=== PATIENT | male | born 1940 | race Caucasian/White ===

== ENCOUNTER → 2016-09-11 | Outpatient (CLI) | payer BC ==
[~2016-09-11] MED LIST: ASPEC81 PO; DILT-119 PO; FINA5TAB PO; HYDR2.5C37 TOP; HYDR25SU20 PR; PRLSR20 PO; SULF-183 PO; TRIA37.5 PO
== END | disposition home or self-care (01) ==
LOC: C.LABPVFM 10:52
PROVIDERS: ATTEND Urology
DX: N40.1 Benign prostatic hyperplasia with lower urinary tract symptoms (principal)

== ENCOUNTER → 2017-03-07 | Outpatient (CLI) | payer BC ==
[2017-03-07 13:10] LABS: ALT/SGPT 21 U/L (12-78); AST/SGOT 17 U/L (15-37); BLOOD UREA NITROGEN 20 mg/dl (7-18); BUN/CREATININE RATIO 16.7 (10-20); CALCIUM 8.7 mg/dl (8.5-10.1); CARBON DIOXIDE 31 mmol/L (21-32); CHLORIDE 106 mmol/L (98-107); GLUCOSE 93 mg/dl (70-99); POTASSIUM 3.5 mmol/L (3.5-5.1); SODIUM 144 mmol/L (136-145)
[2017-03-07 13:12] LABS: ALB/GLOB RATIO 0.9 (0.9-2); ALKALINE PHOSPHATASE 89 U/L (45-117); CHOLESTEROL 152 mg/dl (0-200); HDL CHOLESTEROL 50 mg/dl; LDL CHOLESTEROL CALCULATED 71 mg/dl; TRIGLYCERIDES 156 mg/dl (0-150); VERY LOW DENSITY LIPOPROT CALC 31 mg/dl
[2017-03-07 13:48] LABS: ESTIMATED AVERAGE GLUCOSE 100 mg/dl; HA1C FLAG Normal (Normal)
== END | disposition home or self-care (01) ==
LOC: C.LABPVFM 09:58
PROVIDERS: ATTEND Internal Medicine Cardiovascular Disease
DX: R73.9 Hyperglycemia, unspecified (principal)

== ENCOUNTER → 2017-08-21 | Outpatient (CLI) | payer BC | END | disposition home or self-care (01) | LOC: C.LABPVFM 10:01 | PROVIDERS: ATTEND Urology | DX: N40.1 Benign prostatic hyperplasia with lower urinary tract symptoms (principal) ==

== ENCOUNTER → 2017-08-30 | Outpatient (CLI) | payer BC | END | disposition home or self-care (01) | LOC: C.LABSPEC 15:10 | PROVIDERS: ATTEND Urology | DX: N40.1 Benign prostatic hyperplasia with lower urinary tract symptoms (principal); R82.71 Bacteriuria ==

== ENCOUNTER 2017-12-22 14:00 | Emergency (ER) | payer BC ==
[2017-12-22 14:11] VITALS: TEMP 36.7; Ht 180.3 cm
[2017-12-22] MEDS ORDERED: HYDROCODONE/ACETAMIN 5/325MG TAB PO STA (14:40)
--- NOTE | 2017-12-22 14:58 | DIAGNOSTIC IMAGING REPORT ---
L FOOT MIN 3 VIEWS ROUTINE CLINICAL HISTORY: L foot pain, swelling pain. Edema. COMPARISON: None. DISCUSSION: General mild generative change throughout. Small heel spur. Generalized soft tissue edematous change. No lytic or blastic process. IMPRESSION: Generalized mild degenerative change. Soft tissue edema. No acute bony abnormality. The above report was generated using voice recognition software. It may contain grammatical, syntax or spelling errors. Electronically signed by: Han Moore M.D. 12/22/2017 2:57 PM Dictated Date/Time: 12/22/2017 2:56 PM
--- NOTE | 2017-12-22 15:01 | DIAGNOSTIC IMAGING REPORT ---
L ANKLE MIN 3 VIEWS ROUTINE CLINICAL HISTORY: L ankle swelling pain COMPARISON: None. DISCUSSION: Calcific fragment adjacent to the medial talus. This is well-corticated is considered nonacute. Small heel spur. Mild generalized soft tissue edematous change. Soft tissue vascular calcification. IMPRESSION: Chronic change. No acute process. The above report was generated using voice recognition software. It may contain grammatical, syntax or spelling errors. Electronically signed by: Han Moore M.D. 12/22/2017 2:59 PM Dictated Date/Time: 12/22/2017 2:57 PM
--- NOTE | 2017-12-22 15:06 | EMERGENCY ROOM VISIT NOTE ---
History Report prepared by Skyler: Ailyn Russo Under the Supervision of: Dr. Marta Pierre M.D. First contact with patient: 14:32 Chief Complaint: FOOT PAIN Stated Complaint: CANNOT STAND- PAIN LOWER LEGS History of Present Illness The patient is a 77 year old male who presents to the Emergency Room with complaints of worsening foot pain that started yesterday. The patient states that he awoke with the foot pain yesterday and increased in pain throughout the day. He states that it started swelling when he work up this morning. The patient notes that his left foot hurts on the outside of his ankle and that the pain radiates into the middle of his ankle. He states that he can't put weight on his foot. The patient denies injury to the foot. The patient denies a history of diabetes, blood clots, gout, and smoking. Source of History: patient Onset: Yesterday Position: foot (left) Quality: other (swelling) Timing: worsening Modifying Factors (Worsening): other (weight bearing) Review of Systems See HPI for pertinent positives & negatives. A total of 10 systems reviewed and were otherwise negative. Past Medical & Surgical Medical Problems: (1) Esophageal Reflux (2) Incarcerated incisional hernia (3) Incisional Hernia (4) Umbilical Hernia (5) Wound infection after surgery Surgical Problems: (1) S/P hernia repair Family History Patient reports no known family medical history. Social History Smoking Status: Never Smoker Alcohol Use: none Drug Use: none Marital Status: Housing Status: lives with family Occupation Status: retired Current/Historical Medications Scheduled Aspirin Enteric Coated (Ecotrin Or Generic), 81 MG PO DAILY Diltiazem Hcl Ext Rel (Tiazac), 360 MG PO QAM Finasteride (Proscar), 5 MG PO DAILY Omeprazole (Prilosec), 20 MG PO DAILY Triamterene/Hctz (Dyazide 37.5MG/25MG), 1 TAB PO QAM Scheduled PRN Hydrocodone/Acetaminophen 5MG/325MG ([place] 5MG/325MG), 1 TABLET PO q4-6 PRN for Pain Allergies Coded Allergies: No Known Allergies (Verified , `, 12/22/17) Physical Exam Vital Signs Date Time Temp Pulse Resp B/P (MAP) Pulse Ox O2 Delivery O2 Flow Rate FiO2 12/22/17 17:21 81 16 142/81 98 12/22/17 14:11 36.7 91 16 124/77 95 Room Air Physical Exam Vital signs reviewed. General: Well-appearing, elderly, in no significant distress. HEENT: No scleral icterus, PERRLA, neck supple. Atraumatic. Cardiovascular: Regular rate and rhythm, no extra sounds. Pulmonary: Clear to auscultation bilaterally, normal work of breathing. Abdomen: Soft, nontender, nondistended, positive bowel sounds. Obese abdomen. Musculoskeletal: Atraumatic. Arthritic changes to the bilateral lower extremities. 1+ pitting edema to the left lower extremities. Tenderness along the medial malleolus and lateral malleolus. Neurologic: Patient awake alert and oriented x 3 Skin: Warm, dry, no rash. No appreciable erythema. Fungal changes to the toenails. Absent toenail to the right great toe with some post traumatic dry blood at the bed. Medical Decision & Procedures ER Provider Diagnostic Interpretation: Radiology results as stated below per my review and radiologist interpretation: L VENOUS DOPP LOWER EXT UNILAT CLINICAL HISTORY: LLE swelling pain. Edema. TECHNIQUE: Venous Doppler left leg COMPARISON STUDY: None FINDINGS: Normal venous Doppler left leg IMPRESSION: Normal study The above report was generated using voice recognition software. It may contain grammatical, syntax or spelling errors. Electronically signed by: Han Moore M.D. 12/22/2017 4:38 PM Dictated Date/Time: 12/22/2017 4:38 PM L FOOT MIN 3 VIEWS ROUTINE CLINICAL HISTORY: L foot pain, swelling pain. Edema. COMPARISON: None. DISCUSSION: General mild generative change throughout. Small heel spur. Generalized soft tissue edematous change. No lytic or blastic process. IMPRESSION: Generalized mild degenerative change. Soft tissue edema. No acute bony abnormality. The above report was generated using voice recognition software. It may contain grammatical, syntax or spelling errors. Electronically signed by: Han Moore M.D. 12/22/2017 2:57 PM Dictated Date/Time: 12/22/2017 2:56 PM L ANKLE MIN 3 VIEWS ROUTINE CLINICAL HISTORY: L ankle swelling pain COMPARISON: None. DISCUSSION: Calcific fragment adjacent to the medial talus. This is well-corticated is considered nonacute. Small heel spur. Mild generalized soft tissue edematous change. Soft tissue vascular calcification. IMPRESSION: Chronic change. No acute process. The above report was generated using voice recognition software. It may contain grammatical, syntax or spelling errors. Electronically signed by: Han Moore M.D. 12/22/2017 2:59 PM Laboratory Results 12/22/17 14:55 Red Blood Count 5.01, Mean Corpuscular Volume 89.4, Mean Corpuscular Hemoglobin 31.3, Mean Corpuscular Hemoglobin Concent 35.0, Mean Platelet Volume 9.3, Neutrophils (%) (Auto) 72.9, Lymphocytes (%) (Auto) 14.8, Monocytes (%) (Auto) 10.2, Eosinophils (%) (Auto) 1.5, Basophils (%) (Auto) 0.3, Neutrophils # (Auto ) 8.68, Lymphocytes # (Auto) 1.77, Monocytes # (Auto) 1.22, Eosinophils # (Auto ) 0.18, Basophils # (Auto) 0.04 12/22/17 14:55 Test 12/22/17 14:55 12/22/17 15:11 White Blood Count 11.93 K/uL (4.8-10.8) Red Blood Count 5.01 M/uL (4.7-6.1) Hemoglobin 15.7 g/dL (14.0-18.0) Hematocrit 44.8 % (42-52) Mean Corpuscular Volume 89.4 fL (80-100) Mean Corpuscular Hemoglobin 31.3 pg (25-34) Mean Corpuscular Hemoglobin Concent 35.0 g/dl (32-36) Platelet Count 195 K/uL (130-400) Mean Platelet Volume 9.3 fL (7.4-10.4) Neutrophils (%) (Auto) 72.9 % Lymphocytes (%) (Auto) 14.8 % Monocytes (%) (Auto) 10.2 % Eosinophils (%) (Auto) 1.5 % Basophils (%) (Auto) 0.3 % Neutrophils # (Auto) 8.68 K/uL (1.4-6.5) Lymphocytes # (Auto) 1.77 K/uL (1.2-3.4) Monocytes # (Auto) 1.22 K/uL (0.11-0.59) Eosinophils # (Auto) 0.18 K/uL (0-0.5) Basophils # (Auto) 0.04 K/uL (0-0.2) RDW Standard Deviation 45.2 fL (36.4-46.3) RDW Coefficient of Variation 13.7 % (11.5-14.5) Immature Granulocyte % (Auto) 0.3 % Immature Granulocyte # (Auto) 0.04 K/uL (0.00-0.02) Erythrocyte Sedimentation Rate 13 mm/hr (0-14) Anion Gap 6.0 mmol/L (3-11) Estimated GFR () 67.4 Estimated GFR (Non- 58.2 BUN/Creatinine Ratio 18.8 (10-20) Uric Acid 9.1 mg/dl (2.6-7.2) Calcium Level 8.5 mg/dl (8.5-10.1) Total Bilirubin 0.7 mg/dl (0.2-1) Direct Bilirubin 0.2 mg/dl (0-0.2) Aspartate Amino Transf (AST/SGOT) 18 U/L (15-37) Alanine Aminotransferase (ALT/SGPT) 20 U/L (12-78) Alkaline Phosphatase 78 U/L (45-117) C-Reactive Protein 1.66 mg/dl (0-0.29) Total Protein 7.0 gm/dl (6.4-8.2) Albumin 3.4 gm/dl (3.4-5.0) Prothrombin Time 11.1 SECONDS (9.0-12.0) Prothromb Time International Ratio 1.1 (0.9-1.1) Activated Partial Thromboplast Time 27.9 SECONDS (21.0-31.0) Partial Thromboplastin Ratio 1.1 Laboratory results per my review. ED Course 1437: Past medical records reviewed. The patient was evaluated in room D7. A complete history and physical examination was performed. 1650: Upon reevaluation, the patient appeared to have improvement of his symptoms. I discussed findings with him. He verbalized agreement of the treatment plan. The patient was discharged home. Medical Decision Differential diagnosis: Etiologies such as cellulitis, abscess, MRSA infection, DVT, necrotizing fasciitis, dermatitis, drug eruption, gout, osteomyelitis, fracture, as well as others were entertained. This patient was evaluated and appeared to be in some discomfort. Physical examination reveals some swelling of the left foot but no acute process is identified. X-rays of the foot and ankle were performed and reveal degenerative changes. Ultrasound reveals no evidence of DVT. Laboratory work reveals a normal white count, sedimentation rate. CRP and uric acid levels are mildly elevated. Patient was placed in a walking boot. The symptoms are not localized to one joint. He may have some gout developing however I feel this is likely more of a degenerative process. Patient was given a prescription for [place] to be used as needed for pain. He was advised not to drive or to take Tylenol with this medication. He will use ibuprofen as needed for pain otherwise. He will follow-up with his PCP this week for reevaluation. He will return to the ED for worsening of symptoms or any medical concerns. Medication Reconcilliation Current Medication List: was personally reviewed by me Blood Pressure Screening Patient's blood pressure: Normal blood pressure Blood pressure disposition: Did not require urgent referral Impression Primary Impression: Degenerative joint disease of left foot Additional Impression: Pronation of left foot Scribe Attestation The scribe's documentation has been prepared under my direction and personally reviewed by me in its entirety. I confirm that the note above accurately reflects all work, treatment, procedures, and medical decision making performed by me. Departure Information Dispostion Home / Self-Care Prescriptions Hydrocodone/Acetaminophen 5MG/325MG ([place] 5MG/325MG) Tab 1 TABLET PO q4-6 Y for Pain, #20 TAB Prov: Marta Pierre M.D. 12/22/17 Referrals No Doctor, Assigned (PCP) Forms HOME CARE DOCUMENTATION FORM, IMPORTANT VISIT INFORMATION Patient Instructions My [facility] Additional Instructions Diagnosis: Left foot degenerative changes, pronation of the left foot Hydrocodone/APAP 5/325, 1 tablet every 4-6 hours as needed for severe pain. Do not drive, operate heavy machinery or take Tylenol with this medication. Ibuprofen 600 mg every 6 hours as needed for pain with food. Wear the walking boot for support. Follow-up with your primary care physician and consider orthopedic referral for further management. Return to the ED for worsening of symptoms or any medical concerns. Problem Qualifiers
[2017-12-22 15:07] LABS: BASO % 0.3 %; BASO ABS # 0.04 K/uL (0-0.2); EOS % 1.5 %; EOS ABS # 0.18 K/uL (0-0.5); HEMATOCRIT 44.8 % (42-52); HEMOGLOBIN 15.7 g/dL (14.0-18.0); IG# 0.04 K/uL (0.00-0.02); LYMPH % 14.8 %; LYMPH ABS # 1.77 K/uL (1.2-3.4); MEAN CELL VOLUME 89.4 fL (80-100); MEAN CORPUSCULAR HEMOGLOBIN 31.3 pg (25-34); MEAN PLATELET VOLUME 9.3 fL (7.4-10.4); MONO % 10.2 %; MONO ABS # 1.22 K/uL (0.11-0.59); NEUT % 72.9 %; NEUT ABS # 8.68 K/uL (1.4-6.5); PLATELET COUNT 195 K/uL (130-400); RED CELL DISTRIBUTION WIDTH CV 13.7 % (11.5-14.5); RED CELL DISTRIBUTION WIDTH SD 45.2 fL (36.4-46.3); WHITE BLOOD COUNT 11.93 K/uL (4.8-10.8)
[2017-12-22] MEDS ORDERED: ASPI-319 PO (15:10)
[2017-12-22 15:40] LABS: INR 1.1 (0.9-1.1); PTT PATIENT 27.9 SECONDS (21.0-31.0)
[2017-12-22 15:42] LABS: ALBUMIN 3.4 gm/dl (3.4-5.0); ALKALINE PHOSPHATASE 78 U/L (45-117); ALT/SGPT 20 U/L (12-78); AST/SGOT 18 U/L (15-37); BLOOD UREA NITROGEN 22 mg/dl (7-18); CALCIUM 8.5 mg/dl (8.5-10.1); CARBON DIOXIDE 31 mmol/L (21-32); CREATININE 1.19 mg/dl (0.60-1.40); GLUCOSE 90 mg/dl (70-99); POTASSIUM 3.1 mmol/L (3.5-5.1); SODIUM 141 mmol/L (136-145); URIC ACID 9.1 mg/dl (2.6-7.2)
--- NOTE | 2017-12-22 16:39 | DIAGNOSTIC IMAGING REPORT ---
L VENOUS DOPP LOWER EXT UNILAT CLINICAL HISTORY: LLE swelling pain. Edema. TECHNIQUE: Venous Doppler left leg COMPARISON STUDY: None FINDINGS: Normal venous Doppler left leg IMPRESSION: Normal study The above report was generated using voice recognition software. It may contain grammatical, syntax or spelling errors. Electronically signed by: Han Moore M.D. 12/22/2017 4:38 PM Dictated Date/Time: 12/22/2017 4:38 PM
[2017-12-22] MEDS ORDERED: HYDR-5688 PO (16:56)
[2017-12-22 17:21] VITALS: BP 142/81; PULSE 81; O2SAT 98
== END 2017-12-22 17:22 | disposition home or self-care (01) ==
LOC: C.EDB 14:02 → C.EDD 17:22
DX: M19.072 Primary osteoarthritis, left ankle and foot (principal); M21.6X2 Other acquired deformities of left foot; Z79.82 Long term (current) use of aspirin; Z79.899 Other long term (current) drug therapy

== ENCOUNTER 2021-06-16 15:03 | Inpatient (IN) ==
[2021-06-16] MEDS ORDERED: ALBUT/IPRATROP 3MG/0.5MG NEB 3 ML VIAL NEB STA (15:14)
--- NOTE | 2021-06-16 15:33 | XRay Report ---
SINGLE VIEW CHEST CLINICAL HISTORY: Dyspnea and wheezing. Hypoxia. FINDINGS: An AP, portable, upright chest radiograph is compared to study dated 06/24/2020. The examina tion is degraded by portable technique, large body habitus, and apical lordotic positioning. The hear t is enlarged noting atherosclerotic calcification of the thoracic aorta. The pulmonary vasculature i s noncongested. A large hiatal hernia is noted. Left basilar opacities likely represent atelectasis. No airspace consolidation or large pleural effusion is identified. No pneumothorax is seen. The skele gisella structures are osteopenic. There are healed right-sided rib fractures. IMPRESSION: 1. Left basilar opacities likely represent atelectasis. Clinical correlation will be required. 2. Cardiomegaly without radiographic evidence of congestive failure. 3. Large hiatal hernia. ACT 112: Negative or not required by law. Electronically signed by: Derrek Ramsye M.D. 06/16/2021 3:32 PM
[2021-06-16 15:38] LABS: Basophils # (auto) 0.01 K/uL (0-0.2); Basophils % (auto) 0.3 %; Hematocrit (blood only) 46.4 % (42-52); Immature Granulocytes # (auto) 0.02 K/uL (0.00-0.02); Immature Granulocytes % (auto) 0.5 %; Lymphocytes # (auto) 0.81 K/uL (1.2-3.4); Lymphocytes % (auto) 21.4 %; Mean Corpuscular Hemoglobin 31.5 pg (25-34); Mean Corpuscular Hgb Conc 34.5 g/dL (32-36); Mean Corpuscular Volume 91.3 fL (80-100); Mean Platelet Volume 10.1 fL (7.4-10.4); Monocytes # (auto) 0.53 K/uL (0.11-0.59); Neutrophils # (auto) 2.42 K/uL (1.4-6.5); Neutrophils % (auto) 63.8 %; Platelet Count 120 K/uL (130-400); RDW Coefficient of Variation 13.7 % (11.5-14.5); RDW Standard Deviation 46.2 fL (36.4-46.3); Red Blood Count 5.08 M/uL (4.7-6.1); White Blood Count 3.79 K/uL (4.8-10.8)
[2021-06-16] MEDS ORDERED: ACETAMINOPHEN 500 MG TAB PO STA (15:38)
--- NOTE | 2021-06-16 15:38 | Emergency Department Note ---
Impression & Plan Hypoxia, Breathlessness, 2019 novel coronavirus-infected pneumonia (NCIP), Elevated troponin I level ED Provider Note Provider: Srinath Gay MD DATE OF SERVICE: 06/16/2021 CHIEF COMPLAINT: Shortness of breath HISTORY OF PRESENT ILLNESS: Patient is a 80-year-old gentleman history of GERD and hypertension presenting via ambulance referred from the outpatient clinic. Patient came in for some shortness of breath there. There are notes. Was found to be hypoxic. Sent here for further evaluation. Patient states he been short of breath and having some on and off fevers for the past 3 to 4 days. Denies any abdominal pain or nausea or vomiting. Denies any head pain or chest pain. Patient states feels like he just cannot catch his breath at times. Denies a history of smoking. Denies sick contacts or travel. States he is little bit of chronic swelling in his legs but this is not changed. Patient is not vaccinated for COVID. REVIEW OF SYSTEMS: A total of 10 review of systems was obtained and negative except as stated above in the HPI. PAST MEDICAL HISTORY: As noted above MEDICATIONS: Reviewed home medication list SOCIAL HISTORY: Lives at home with , non-smoker per his report PHYSICAL EXAM: GENERAL: alert and oriented in no acute distress on stretcher Head: normocephalic and atraumatic EYES: No injection, discharge or icterus. PERRL NECK: Trachea midline. Supple. ENT: Mucous membranes pink and moist. LUNGS: Airway patent. No retractions but somewhat tachypneic. Some diffuse wheeze appreciated. HEART: Regular rate and rhythm. No chest wall tenderness ABDOMEN: Soft and non-tender, without guarding or rebound. SKIN: Acyanotic, warm, dry EXTREMITIES: Patient with some mild bilateral chronic stasis changes and 1+ mild bilateral edema. NEUROLOGICAL: No focal deficits. No aphasia. No facial droop or slurred speech. EK bpm normal sinus rhythm without PVC or PAC. Some slight baseline artifact noted. No acute ST segment elevation noted with left axis. Nonspecific T wave changes. QTc 409. CONTINUOUS CARDIAC MONITORING: was ordered and showed a heart rate of 70s-90s bpm in normal sinus rhythm Patient's laboratory studies and imaging reviewed. Differential includes Reactive airway disease, pneumonia, pneumothorax, COPD, CHF, infections, cardiac ischemia, pulmonary embolism, musculoskeletal, gastrointestinal, as well as other pathologies. IMPRESSION/MEDICAL DECISION MAKING: Patient nonvaccinated with some increased shortness of breath found to be hypoxic. Wheezy on exam but no history of smoking. Trace bilateral lower edema. Chest x-ray question some atelectasis in the left base. Patient is febrile. Given a DuoNeb given his wheeziness on exam. COVID test sent. Lower suspicion at this time given the findings and the fever and wheeziness this represents acute PE. EKG and troponin were sent but again seems atypical for ACS. Given some Tylenol here to help with fever. Bladder was unlike leukopenia. No severe electrolyte abnormality however some mild hypokalemia. Troponin minimally elevated. COVID-positive likely explain symptoms. Given some dexamethasone as well as some Pepcid and aspirin. Doubt acute ACS believes likely some more demand related to his general illness. Discussed with the patient. Patient will be evaluated by the hospitalist for further care here at the hospital. DIAGNOSIS: Shortness of breath, hypoxia, COVID-19 pneumonia, elevated troponin/NSTEMI DISPOSITION: Hospitalist will evaluate Patient was agreeable with this plan. Critical Care I have personally spent 31 minutes of critical care time in the direct management of this patient. This includes bedside care, interpretation of diagnostic studies, and testing, discussion with consultants, patient, and other required patient management activities. These 31 minutes is in excess of all separately billable procedures. Past Med/Surg History Medical History (Updated 06/16/21 @ 16:58 by Fernando Mayorga MD) Benign localized hyperplasia of prostate with urinary obstruction Burn of right lower leg Chest pain Extremity atherosclerosis with intermittent claudication FH: CAD (coronary artery disease) GERD (gastroesophageal reflux disease) H. pylori infection HTN (hypertension) Internal hemorrhoids Irreducible hernia of anterior abdominal wall Morbid obesity Surgical History Hx of hernia repair Hx of tonsillectomy Family History Other Coronary heart disease FH: CAD (coronary artery disease) Myocardial infarction Denies family history of Ovarian cancer Prostate cancer Breast cancer Colorectal cancer Social History Smoking Status: Never smoker Second Hand Exposure: No; Hx Alcohol Use: No Hx Substance Use: No Preferred Language: Tristanian Communication Ability: Effective Visual Impairment: No Limitations Hearing Ability: Normal College Professor Required: No Beliefs That Will Affect Care: None marital status: Current Living Situation: Spouse current occupational status: employed current occupation: FARMING How many Children do You have: 1 How many Children do You have Comment: PT INDEPENDENT AT THIS TIME, FAMILY ABLE TO ASSIST NEEDED Feels Safe at Home: Yes Safety Concerns: Feels Safe At This Time caffeine: Yes during the past year weight has: remained stable Dental Care, Regularly: Yes Physical Activity Frequency: Daily Seatbelt Use: sometimes Sunscreen Use: No Assistive Devices: None Allergies Allergies Allergy/AdvReac Type Severity Reaction Status Date / Time No Known Allergies Allergy Unknown ` Verified 06/16/21 16:13 Home Meds Home Medications Medication Instructions Recorded Confirmed aspirin 81 mg tablet,delayed 81 mg PO DAILY tab 02/10/19 06/16/21 release omeprazole 20 mg capsule,delayed 20 mg PO BID cap 02/10/19 06/16/21 release Previous Rx's Medication Instructions Recorded triamterene 37.5 1 cap PO DAILY #90 cap 09/07/20 mg-hydrochlorothiazide 25 mg capsule finasteride 5 mg tablet 5 mg PO DAILY #90 tab 11/07/20 diltiazem HCl 360 mg capsule,24 360 mg PO DAILY #90 cap 11/08/20 hr,extended release potassium chloride 10 mEq 10 meq PO DAILY #30 tab 06/05/21 tablet,extended release Results & Data (ED) Vital Signs Vital Signs - 24 hr 06/16/21 15:16 06/16/21 15:32 06/16/21 15:34 Temperature 38.8 C H Temperature Source Oral Pulse Rate 80 Respiratory Rate 27 H Respiratory Effort / Characteristics Short of Breath Respiratory Depth Normal Respiratory Pattern Regular Blood Pressure 120/69 Blood Pressure Mean 86 Pulse Oximetry 96 87 L 96 Oxygen Delivery Method Nasal Cannula Nasal Cannula Nasal Cannula Oxygen Flow Rate 2 0 2 Sepsis Recent Fever Within 48 Hours Yes Sepsis New/Unexplained Change in Mental Status N/A Sepsis Action Taken by Nursing Physician Notified Oxygen Flow Rate - Titration 2 Pulse Oximetry Post Tiitration 96 Laboratory Data Result diagrams: 06/16/21 15:20 06/16/21 15:20 Lab Results 06/16/21 06/16/21 06/16/21 Range/Units 15:20 15:20 15:20 WBC 3.79 L (4.8-10.8) K/uL RBC 5.08 (4.7-6.1) M/uL Hgb 16.0 (14.0-18.0) g/dL Hct 46.4 (42-52) % MCV 91.3 (80-100) fL MCH 31.5 (25-34) pg MCHC 34.5 (32-36) g/dL RDW Std Deviation 46.2 (36.4-46.3) fL RDW Coeff of Donnie 13.7 (11.5-14.5) % Plt Count 120 L (130-400) K/uL MPV 10.1 (7.4-10.4) fL Immature Gran % (Auto) 0.5 % Neut % (Auto) 63.8 % Lymph % (Auto) 21.4 % Cottle % (Auto) 14.0 % Eos % (Auto) 0.0 % Baso % (Auto) 0.3 % Neut # (Auto) 2.42 (1.4-6.5) K/uL Lymph # (Auto) 0.81 L (1.2-3.4) K/uL Cottle # (Auto) 0.53 (0.11-0.59) K/uL Eos # (Auto) 0.00 (0-0.5) K/uL Baso # (Auto) 0.01 (0-0.2) K/uL Immature Gran # (Auto) 0.02 (0.00-0.02) K/uL RBC Morphology Unremarkable Sodium 139 (136-145) mmol/L Potassium 3.3 L (3.5-5.1) mmol/L Chloride 104 (98-107) mmol/L Carbon Dioxide 29 (21-32) mmol/L Anion Gap 6 (3-11) BUN 26 H (6-23) mg/dl Creatinine 1.18 (0.6-1.4) mg/dl Est Cr Clr Drug Dosing 67.1 ml/min Est GFR ( Amer) 66.7 ml/min Est GFR (Non-Af Amer) 57.5 ml/min BUN/Creatinine Ratio 22.0 H (10-20) Glucose 98 (70-99(Fasting)) mg/dl Lactate 0.9 (0.4-2.0) mmol/L Calcium 7.7 L (8.5-10.1) mg/dl Total Bilirubin 0.8 (0.2-1.0) mg/dl AST 82 H (13-39) U/L ALT 50 (7-52) U/L Alkaline Phosphatase 60 (34-104) U/L Troponin I 0.06 H* (0-0.04) ng/ml C-Reactive Protein (0-0.5) mg/dl Total Protein 6.8 (6.0-8.3) gm/dl Albumin 3.5 (3.4-5.0) gm/dl Globulin 3.3 (2.5-4.0) gm/dl Albumin/Globulin Ratio 1.1 (0.9-2) Procalcitonin (0-0.5) ng/ml SARS-CoV-2, RNA, NAAT (NEGATIVE) 06/16/21 06/16/21 06/16/21 Range/Units 15:20 15:20 15:50 WBC (4.8-10.8) K/uL RBC (4.7-6.1) M/uL Hgb (14.0-18.0) g/dL Hct (42-52) % MCV (80-100) fL MCH (25-34) pg MCHC (32-36) g/dL RDW Std Deviation (36.4-46.3) fL RDW Coeff of Donnie (11.5-14.5) % Plt Count (130-400) K/uL MPV (7.4-10.4) fL Immature Gran % (Auto) % Neut % (Auto) % Lymph % (Auto) % Cottle % (Auto) % Eos % (Auto) % Baso % (Auto) % Neut # (Auto) (1.4-6.5) K/uL Lymph # (Auto) (1.2-3.4) K/uL Cottle # (Auto) (0.11-0.59) K/uL Eos # (Auto) (0-0.5) K/uL Baso # (Auto) (0-0.2) K/uL Immature Gran # (Auto) (0.00-0.02) K/uL RBC Morphology Sodium (136-145) mmol/L Potassium (3.5-5.1) mmol/L Chloride (98-107) mmol/L Carbon Dioxide (21-32) mmol/L Anion Gap (3-11) BUN (6-23) mg/dl Creatinine (0.6-1.4) mg/dl Est Cr Clr Drug Dosing ml/min Est GFR ( Amer) ml/min Est GFR (Non-Af Amer) ml/min BUN/Creatinine Ratio (10-20) Glucose (70-99(Fasting)) mg/dl Lactate (0.4-2.0) mmol/L Calcium (8.5-10.1) mg/dl Total Bilirubin (0.2-1.0) mg/dl AST (13-39) U/L ALT (7-52) U/L Alkaline Phosphatase (34-104) U/L Troponin I (0-0.04) ng/ml C-Reactive Protein 3.40 H (0-0.5) mg/dl Total Protein (6.0-8.3) gm/dl Albumin (3.4-5.0) gm/dl Globulin (2.5-4.0) gm/dl Albumin/Globulin Ratio (0.9-2) Procalcitonin 0.11 (0-0.5) ng/ml SARS-CoV-2, RNA, NAAT POSITIVE A* (NEGATIVE) Administered Medications Enoxaparin Sodium (Enoxaparin Inj 40 Mg/0.4 Ml Syr) 40 mg SQ BID [facility] Stop: 07/16/21 20:59 Last Admin: 06/16/21 21:14 Dose: 40 mg Documented by: [id number] Pantoprazole Sodium (Pantoprazole 40 Mg Tab) 40 mg PO BID [facility]UD[facility] Stop: 07/16/21 20:59 Last Admin: 06/16/21 21:14 Dose: 40 mg Documented by: [id number] Discontinued Medications Acetaminophen (Acetaminophen 500 Mg Tab) 1,000 mg PO NOW STA Stop: 06/16/21 15:39 Last Admin: 06/16/21 15:54 Dose: 1,000 mg Documented by: [id number] Albuterol (Albut/Ipratrop 3mg/0.5mg Neb 3 Ml Vial) 3 ml NEB NOW STA; Protocol Stop: 06/16/21 15:15 Last Admin: 06/16/21 15:54 Dose: 3 ml Documented by: [id number] Aspirin (Aspirin Chew 324 Mg) 324 mg PO NOW STA Stop: 06/16/21 16:14 Last Admin: 06/16/21 16:38 Dose: 324 mg Documented by: [id number] Dexamethasone Sodium Phosphate (DexamethasonePf 10 Mg/Ml Vial) 6 mg IV NOW ONE Stop: 06/16/21 16:14 Last Admin: 06/16/21 16:37 Dose: 6 mg Documented by: [id number] Famotidine (Pepcid 20mg Iv Push) 20 mg in 5 mls @ 2.5 mls/min IV NOW STA Stop: 06/16/21 16:14 Last Admin: 06/16/21 16:37 Dose: 2.5 mls/min Documented by: [id number] Remdesivir 200 mg/ Sodium (Chloride) 250 mls @ 125 mls/hr IV NOW ONE; Protocol Stop: 06/16/21 20:29 Last Admin: 06/16/21 18:50 Dose: 125 mls/hr Documented by: [id number] Potassium Chloride (Potassium Chloride Crtab 20 Meq Tabcr) 20 meq PO NOW STA Stop: 06/16/21 17:00 Last Admin: 06/16/21 17:17 Dose: 20 meq Documented by: [id number] Imaging Data Radiologist's Impression: Chest X-Ray 06/16/21 15:13 SINGLE VIEW CHEST CLINICAL HISTORY: Dyspnea and wheezing. Hypoxia. FINDINGS: An AP, portable, upright chest radiograph is compared to study dated 06/24/2020. The examination is degraded by portable technique, large body habitus, and apical lordotic positioning. The heart is enlarged noting atheros clerotic calcification of the thoracic aorta. The pulmonary vasculature is noncongested. A large hiatal hernia is noted. Left basilar opacities likely represent atelectasis. No airspace consolidation or large pleural effusion is identified. No pneumothorax is seen. The skeletal structures are osteopenic. There are healed right-sided rib fractures. IMPRESSION: 1. Left basilar opacities likely represent atelectasis. Clinical correlation will be required. 2. Cardiomegaly without radiographic evidence of congestive failure. 3. Large hiatal hernia. ACT 112: Negative or not required by law. Electronically signed by: Derrek Ramsey M.D. 06/16/2021 3:32 PM Discharge Plan Visit Data Chief Complaint: Shortness of Breath/Dyspnea Stated Complaint: HYPOXIA, ED Provider: Srinath Gay Discharge Problem: Hypoxia, Breathlessness, 2019 novel coronavirus-infected pneumonia (NCIP), Elevated troponin I level Patient Disposition: Admitted As Inpatient Discharge Instructions Interventions: ED Discharge Assessment Last Done: 06/16/21 18:28
[2021-06-16 16:04] LABS: Albumin Globulin Ratio 1.1 (0.9-2); Albumin Level 3.5 gm/dl (3.4-5.0); Bilirubin,Total 0.8 mg/dl (0.2-1.0); Calcium 7.7 mg/dl (8.5-10.1); Creatinine Clr Calc Pharmacy 67.1 ml/min; Est GFR (African American) 66.7 ml/min; Est GFR (Non-African American) 57.5 ml/min; Globulin 3.3 gm/dl (2.5-4.0); Potassium 3.3 mmol/L (3.5-5.1); Total Protein 6.8 gm/dl (6.0-8.3)
[2021-06-16 16:07] LABS: Troponin I 0.06 ng/ml (0-0.04)
[2021-06-16] MEDS ORDERED: dexAMETHasone**PF** 10 MG/ML VIAL IV ONE (16:13)
[2021-06-16] MEDS ORDERED: ASPIRIN CHEW 324 MG PO STA (16:13)
[2021-06-16] MEDS ORDERED: FAMOTIDINE 20MG IV PUSH 20 MG/5 ML SYR IV STA (16:13)
[2021-06-16 16:26] LABS: RBC Morphology Unremarkable
--- NOTE | 2021-06-16 16:58 | History & Physical Report ---
Date of Service June 16, 2021 Assessment & Plan (1) COVID-19: Plan: Unvaccinated First day of symptoms: June 13 First tested positive: 06/16 Started on dexamethasone 6 mg IV daily [06/16] for total 10 days - consider BID dosing with wheezing although no known asthma/COPD diagnosis. Good candidate for remdesivir therefore started on 5 day course [06/16]. Does not meet oxygen requirement for Baricitinib Prone as able (2) Acute respiratory failure with hypoxia: Plan: Procalcitonin negative Secondary to COVID-19 Aim O2 sats > 90% (3) Wheezing: Plan: Consider PFTs as outpatient once over this Continue duonebs QID (4) Elevated troponin I level: Plan: Suspected demand-ischemia. No chest pain to suggest ACS. (5) Hypokalemia: Plan: K 3.3 on admission KCl 20meq PO Repeat with AM labs (6) HTN (hypertension): Plan: Continue his usual antihypertensives with diltiazem, triamterene and HCTZ (7) Morbid obesity: Plan: Increased risk of severity with this Plan: VTE Prophylaxis - Lovenox 40mg SQ BID (increased dose due to COVID-19 and morbid obesity). Could consider full dosing per current NIH guidelines however d-dimer only mildly elevated. Diet - regular Disposition - COVID isolation, admit to med/surg Admission and Anticipated Discharge Date Admission Date: June 16, 2021 History of Present Illness Chief Complaint: Shortness of breath Primary Care Provider: Alfredito Green DO Jared Arriaga is an 80 year old male who presents to the ER on the advice of his PCP today due to shortness of breath and hypoxia. He reports being unwell fo r the last 4 days with shortness of breath, fever, chills, nasal congestion, cough, reduced appetite and wheezing. He denies any history of COPD or asthma and does not smoke. He denies any diarrhea, chest pain, abdominal pain, sore throat, sinus pain, loss of taste or smell. At his PCP office earlier today he was noted to be hypoxic with O2 sats 84% on room air therefore was sent to the ER. He is currently 97% on 2LPM O2 via nasal cannula. SARS-COV-2 subsequently positive. He was referred to medicine for admission and ongoing management of hypoxia and COVID-19. Allergies Allergy/AdvReac Type Severity Reaction Status Date / Time No Known Allergies Allergy Unknown ` Verified 06/16/21 16:13 Home Medications Medication Instructions Recorded Confirmed Type aspirin 81 mg tablet,delayed 81 mg PO DAILY tab 02/10/19 06/16/21 History release omeprazole 20 mg capsule,delayed 20 mg PO BID cap 02/10/19 06/16/21 History release triamterene 37.5 1 cap PO DAILY #90 cap 09/07/20 06/16/21 Rx mg-hydrochlorothiazide 25 mg capsule finasteride 5 mg tablet 5 mg PO DAILY #90 tab 11/07/20 06/16/21 Rx diltiazem HCl 360 mg capsule,24 360 mg PO DAILY #90 cap 11/08/20 06/16/21 Rx hr,extended release potassium chloride 10 mEq 10 meq PO DAILY #30 tab 06/05/21 06/16/21 Rx tablet,extended release Past Med/Surg History Medical History (Updated 06/16/21 @ 16:58 by Fernando Mayorga MD) Benign localized hyperplasia of prostate with urinary obstruction Burn of right lower leg Chest pain Extremity atherosclerosis with intermittent claudication FH: CAD (coronary artery disease) GERD (gastroesophageal reflux disease) H. pylori infection HTN (hypertension) Internal hemorrhoids Irreducible hernia of anterior abdominal wall Morbid obesity Surgical History Hx of hernia repair Hx of tonsillectomy Family History Other Coronary heart disease FH: CAD (coronary artery disease) Myocardial infarction Denies family history of Ovarian cancer Prostate cancer Breast cancer Colorectal cancer Social History Smoking Status: Never smoker Second Hand Exposure: No; Hx Alcohol Use: No Hx Substance Use: No Preferred Language: Palestinian Communication Ability: Effective Visual Impairment: No Limitations Hearing Ability: Normal Retail Store Manager Required: No Beliefs That Will Affect Care: None marital status: Current Living Situation: Spouse current occupational status: employed current occupation: FARMING How many Children do You have: 1 How many Children do You have Comment: PT INDEPENDENT AT THIS TIME, FAMILY ABLE TO ASSIST NEEDED Feels Safe at Home: Yes Safety Concerns: Feels Safe At This Time caffeine: Yes during the past year weight has: remained stable Dental Care, Regularly: Yes Physical Activity Frequency: Daily Seatbelt Use: sometimes Sunscreen Use: No Assistive Devices: None Review of Systems Review of Systems: All systems reviewed & are unremarkable except as noted in HPI & below Physical Exam Constitutional: well developed and + morbidly obese; no acute distress ENMT: external ear and nose normal, oropharynx normal Neck: trachea midline, no thyromegaly Respiratory: + uses accessory muscles and + prolonged expiratory phase; + abnormal respiratory effort Auscultation: + wheezes (inspiratory and expiratory throughout); no diminished lung sounds, no crackles, no rales and no rhonchi Cardiovascular: Rate/Rhythm: regular rate and regular rhythm Heart Sounds: no murmur Extremities: + pedal edema (1+ pre-tibial b/l equal) Gastrointestinal (Abdomen): normal bowel sounds, soft, nontender, no hepatosplenomegaly Musculoskeletal: no cyanosis or clubbing, extremities motor strength 5/5 Skin: no rashes, warm and dry Neurologic: moves all extremities and awake; not confused Psychiatric: A+Ox3, euthymic affect Results & Data Results & Data ([facility]) Vital Signs (Past 12 Hours) Vital Signs Temp Pulse Resp BP Pulse Ox 06/16/21 15:34 96 06/16/21 15:32 87 L 06/16/21 15:16 38.8 C H 80 27 H 120/69 96 Laboratory Results Abnormal lab results 06/16/21 06/16/21 06/16/21 Range/Units 15:20 15:20 15:50 WBC 3.79 L (4.8-10.8) K/uL Plt Count 120 L (130-400) K/uL Lymph # (Auto) 0.81 L (1.2-3.4) K/uL Potassium 3.3 L (3.5-5.1) mmol/L BUN 26 H (6-23) mg/dl BUN/Creatinine Ratio 22.0 H (10-20) Calcium 7.7 L (8.5-10.1) mg/dl AST 82 H (13-39) U/L Troponin I 0.06 H* (0-0.04) ng/ml SARS-CoV-2, RNA, NAAT POSITIVE A* (NEGATIVE) Diagnostic Findings SINGLE VIEW CHEST CLINICAL HISTORY: Dyspnea and wheezing. Hypoxia. FINDINGS: An AP, portable, upright chest radiograph is compared to study dated 06/24/2020. The examination is degraded by portable technique, large body habitus, and apical lordotic positioning. The heart is enlarged noting atherosclerotic calcification of the thoracic aorta. The pulmonary vasculature is noncongested. A large hiatal hernia is noted. Left basilar opacities likely represent atelectasis. No airspace consolidation or large pleural effusion is identified. No pneumothorax is seen. The skeletal structures are osteopenic. There are healed right-sided rib fractures. IMPRESSION: 1. Left basilar opacities likely represent atelectasis. Clinical correlation will be required. 2. Cardiomegaly without radiographic evidence of congestive failure. 3. Large hiatal hernia. Medications Administered ER Medications Given: Duoneb 3ml NEB Acetaminophen 1000mg PO Aspirin 324mg PO Dexamethasone 6mg IV Famotidine 20mg IV ECG Indication: SOB/dyspnea Rate (beats per minute): 77 Rhythm: normal sinus Findings: + nonspecific-ST abn and + left axis deviation Comparison ECG Date: from (Jun 24, 2020) Change: the following changes noted (Premature ventricular complexes are no longer present, QRS axis Shifted left, Nonspecific T wave abnormality no longer evident in lateral leads) Code Status & VTE Plan Code Status Full VTE Prophylaxis Plan VTE Prophylaxis will be ordered: Yes PG Care Time/CCT Total # of Minutes Spent Total Time Spent with Patient: Total time spent is greater than 50% in coordination of care (as documented) at patient's floor/unit and/or counseling patient: Coding Level of Care Code 54577 Initial Inpt Care Lvl 3 Diagnoses COVID-19 U07.1 Elevated troponin I level R77.8 Acute respiratory failure with hypoxia J96.01 Wheezing R06.2 Hypokalemia E87.6 HTN (hypertension) I10 Morbid obesity E66.01
[2021-06-16] MEDS ORDERED: POTASSIUM CHLORIDE CRTAB 20 MEQ TABCR PO STA (16:59)
[2021-06-16 18:01] LABS: D Dimer 840 ug/L FEU (0-500)
[2021-06-16] MEDS ORDERED: REMDESIVIR 200 MG in SODIUM CHLORIDE 0.9% 210 ML IV ONE (18:30)
[2021-06-16] MEDS ORDERED: ACETAMINOPHEN 325 MG TAB PO PRN (19:26)
[2021-06-16] MEDS ORDERED: ONDANSETRON INJ 2 MG/ML 2 ML VIAL IV PRN (19:26)
[2021-06-16] MEDS: PANTOprazole 40 MG TAB PO SCH (21:14)
[2021-06-16] MEDS: ENOXAPARIN INJ 40 MG/0.4 ML SYR SQ SCH (21:14)
--- NOTE | 2021-06-16 21:55 | Electrocardiogram Report ---
Test Reason : Blood Pressure : / mmHG Vent. Rate : 077 BPM Atrial Rate : 077 BPM P-R Int : 134 ms QRS Dur : 086 ms QT Int : 362 ms P-R-T Axes : 004 -35 035 degrees QTc Int : 409 ms Poor data quality, interpretation may be adversely affected Normal sinus rhythm Possible Left atrial enlargement Left axis deviation Nonspecific ST abnormality Abnormal ECG When compared with ECG of 24-JUN-2020 11:15, Premature ventricular complexes are no longer Present QRS axis Shifted left Nonspecific T wave abnormality no longer evident in Lateral leads Confirmed by Madhu Cuevas ([id number]) on 06/16/2021 9:54:59 PM Referred By: Confirmed By:Madhu Cuevas
[2021-06-17 08:05] LABS: Basophils # (auto) 0.01 K/uL (0-0.2); Basophils % (auto) 0.5 %; Hematocrit (blood only) 45.2 % (42-52); Hemoglobin 15.4 g/dL (14.0-18.0); Immature Granulocytes # (auto) 0.02 K/uL (0.00-0.02); Immature Granulocytes % (auto) 0.9 %; Lymphocytes # (auto) 0.67 K/uL (1.2-3.4); Lymphocytes % (auto) 31.3 %; Mean Corpuscular Hemoglobin 31.2 pg (25-34); Mean Corpuscular Hgb Conc 34.1 g/dL (32-36); Mean Corpuscular Volume 91.7 fL (80-100); Mean Platelet Volume 10.7 fL (7.4-10.4); Monocytes # (auto) 0.29 K/uL (0.11-0.59); Monocytes % (auto) 13.6 %; Neutrophils # (auto) 1.15 K/uL (1.4-6.5); Neutrophils % (auto) 53.7 %; Platelet Count 114 K/uL (130-400); RDW Coefficient of Variation 13.8 % (11.5-14.5); RDW Standard Deviation 46.5 fL (36.4-46.3); Red Blood Count 4.93 M/uL (4.7-6.1); White Blood Count 2.14 K/uL (4.8-10.8)
[2021-06-17] MEDS: PANTOprazole 40 MG TAB PO SCH ×2 (08:21→20:46)
[2021-06-17] MEDS: TRIAMTERENE/HCTZ 37.5/25MG CAP PO SCH (08:21)
[2021-06-17] MEDS: dilTIAZem HCL 180 MG CAPCR PO SCH (08:22)
[2021-06-17] MEDS: FINASTERIDE 5 MG TAB PO SCH (08:22)
[2021-06-17] MEDS: POTASSIUM CHLORIDE 10 MEQ TABCR PO SCH (08:22)
[2021-06-17 08:23] LABS: Albumin Level 3.2 gm/dl (3.4-5.0); BUN Creatinine Ratio 29.8 (10-20); Bilirubin,Total 0.5 mg/dl (0.2-1.0); Calcium 7.4 mg/dl (8.5-10.1); Creatinine Clr Calc Pharmacy 68.5 ml/min; Est GFR (African American) 69.5 ml/min; Globulin 3.1 gm/dl (2.5-4.0); Potassium 3.4 mmol/L (3.5-5.1); Total Protein 6.3 gm/dl (6.0-8.3)
[2021-06-17] MEDS: ASPIRIN 81 MG ECTAB PO SCH (08:23)
[2021-06-17] MEDS ORDERED: PNEUMOCOCCAL POLYSACCHARIDES 25 MCG/0.5 ML VIAL/SYR IM ONE (09:00)
[2021-06-17] MEDS: ENOXAPARIN INJ 40 MG/0.4 ML SYR SQ SCH ×2 (09:03→20:45)
[2021-06-17] MEDS: dexAMETHasone 6 MG in SYRINGE 0 ML IV SCH (09:03)
[2021-06-17] MEDS ORDERED: POTASSIUM CHLORIDE CRTAB 20 MEQ TABCR PO STA (09:36)
--- NOTE | 2021-06-17 14:37 | Hospitalist Progress Note ---
Date of Service June 17, 2021 Assessment & Plan (1) COVID-19: Plan: With COVID-19 pneumonia First day of symptoms: June 13 First tested positive: 06/16 Requiring 2 L nasal cannula-continue and wean off as able to CRP minimally elevated at 3.4 Continue dexamethasone 6 mg IV daily Continue Remdesivir x5-day course Continue incentive spirometry, and flutter valve Prone as able (2) Acute respiratory failure with hypoxia: Plan: Procalcitonin negative Secondary to COVID-19 pneumonia Aim O2 sats > 90% (3) Wheezing: Plan: Consider PFTs as outpatient once over this Continue duonebs QID (4) Elevated troponin I level: Plan: Suspected demand-ischemia. No chest pain to suggest ACS. Troponin mildly elevated at 0.06 on admission, repeat trended down to normal ECG without ischemic changes (5) Hypokalemia: Plan: Persists Replace with oral potassium chloride Okay to continue triamterene/HCTZ Follow BMP (6) HTN (hypertension): Plan: Blood pressures acceptable -Continue his usual antihypertensives with diltiazem, triamterene and HCTZ (7) Morbid obesity: Plan: Increased risk of severity with this BMI 40.8 Needs weight loss (8) BPH loc w urin obs/LUTS: Plan: Continue finasteride (9) GERD (gastroesophageal reflux disease): Plan: Continue PPI Plan: VTE Prophylaxis - Lovenox 40mg SQ BID (increased dose due to COVID-19 and morbid obesity). Could consider full dosing per current NIH guidelines however d-dimer only mildly elevated. Disposition - COVID isolation, admit to med/surg Admission and Anticipated Discharge Date Admission Date: June 16, 2021 Subjective Patient reports feeling slightly better today. Remains on oxygen. Appetite is poor, nothing tastes good. Denies shortness of breath. No chest pain Telemetry with normal sinus rhythm with rates in the 60s to 70s Review of Systems Review of Systems: All systems reviewed & are unremarkable except as noted in HPI & below Physical Exam Constitutional: WD/WN, vitals as above + obese Eyes: + anicteric sclerae; no conjunctival abnormality Neck: trachea midline, no thyromegaly Respiratory: normal respiratory effort; no cough Auscultation: + wheezes (Bilateral expiratory) Cardiovascular: RRR, no murmur, no edema Chest (Breasts): Chest: normal inspection of chest Gastrointestinal (Abdomen): normal bowel sounds, soft, nontender, no hepatosplenomegaly Musculoskeletal: Extremities: extremities normal to inspection; no cyanosis and no clubbing Skin: no rashes, warm and dry Neurologic: moves all extremities and awake; no focal motor deficits Psychiatric: A+Ox3, euthymic affect Lymphatic: no lymphedema Results & Data Results & Data ([facility]) Vital Signs (Past 12 Hours) Vital Signs Temp Pulse Pulse Resp BP Pulse Ox 06/17/21 11:13 36.7 C 74 22 131/79 96 06/17/21 10:34 59 L 06/17/21 08:31 36.9 C 97 H 18 105/83 94 06/17/21 03:22 36.5 C 60 20 131/80 97 Laboratory Results 06/17/21 06/17/21 06/17/21 Range/Units 16:05 10:45 07:10 WBC (4.8-10.8) K/uL RBC (4.7-6.1) M/uL Hgb (14.0-18.0) g/dL Hct (42-52) % MCV (80-100) fL MCH (25-34) pg MCHC (32-36) g/dL RDW Std Deviation (36.4-46.3) fL RDW Coeff of Donnie (11.5-14.5) % Plt Count (130-400) K/uL MPV (7.4-10.4) fL Immature Gran % (Auto) % Neut % (Auto) % Lymph % (Auto) % [place] % (Auto) % Eos % (Auto) % Baso % (Auto) % Neut # (Auto) (1.4-6.5) K/uL Lymph # (Auto) (1.2-3.4) K/uL [place] # (Auto) (0.11-0.59) K/uL Eos # (Auto) (0-0.5) K/uL Baso # (Auto) (0-0.2) K/uL Immature Gran # (Auto) (0.00-0.02) K/uL Sodium 140 (136-145) mmol/L Potassium 3.4 L (3.5-5.1) mmol/L Chloride 106 (98-107) mmol/L Carbon Dioxide 29 (21-32) mmol/L Anion Gap 5 (3-11) BUN 34 H (6-23) mg/dl Creatinine 1.14 (0.6-1.4) mg/dl Est Cr Clr Drug Dosing 68.5 ml/min Est GFR ( Amer) 69.5 ml/min Est GFR (Non-Af Amer) 60.0 ml/min BUN/Creatinine Ratio 29.8 H (10-20) Glucose 119 H (70-99(Fasting)) mg/dl Calcium 7.4 L (8.5-10.1) mg/dl Total Bilirubin 0.5 (0.2-1.0) mg/dl AST 71 H (13-39) U/L ALT 43 (7-52) U/L Alkaline Phosphatase 56 (34-104) U/L Troponin I 0.04 (0-0.04) ng/ml Total Protein 6.3 (6.0-8.3) gm/dl Albumin 3.2 L (3.4-5.0) gm/dl Globulin 3.1 (2.5-4.0) gm/dl Albumin/Globulin Ratio 1.0 (0.9-2) Urine Color Yellow Urine Appearance Clear (Clear) Urine pH 7.0 (4.5-7.5) Ur Specific [place] 1.020 (1.000-1.030) Urine Protein Trace H (Negative) Urine Glucose (UA) Negative (Negative) Urine Ketones Negative (Negative) Urine Blood Negative (Negative) Urine Nitrite Negative (Negative) Urine Bilirubin Negative (Negative) Urine Urobilinogen Negative (Negative) Ur Leukocyte Esterase Negative (Negative) Urine WBC (Auto) 1-5 (0-5) /hpf Urine RBC (Auto) 0-4 (0-4) /hpf U Hyaline Cast (Auto) 1-5 (0-5) /lpf U Epithel Cells (Auto) 5-10 H (0-5) /lpf Urine Bacteria (Auto) Negative (Negative) 06/17/21 Range/Units 07:10 WBC 2.14 L (4.8-10.8) K/uL RBC 4.93 (4.7-6.1) M/uL Hgb 15.4 (14.0-18.0) g/dL Hct 45.2 (42-52) % MCV 91.7 (80-100) fL MCH 31.2 (25-34) pg MCHC 34.1 (32-36) g/dL RDW Std Deviation 46.5 H (36.4-46.3) fL RDW Coeff of Donnie 13.8 (11.5-14.5) % Plt Count 114 L (130-400) K/uL MPV 10.7 H (7.4-10.4) fL Immature Gran % (Auto) 0.9 % Neut % (Auto) 53.7 % Lymph % (Auto) 31.3 % [place] % (Auto) 13.6 % Eos % (Auto) 0.0 % Baso % (Auto) 0.5 % Neut # (Auto) 1.15 L (1.4-6.5) K/uL Lymph # (Auto) 0.67 L (1.2-3.4) K/uL [place] # (Auto) 0.29 (0.11-0.59) K/uL Eos # (Auto) 0.00 (0-0.5) K/uL Baso # (Auto) 0.01 (0-0.2) K/uL Immature Gran # (Auto) 0.02 (0.00-0.02) K/uL Sodium (136-145) mmol/L Potassium (3.5-5.1) mmol/L Chloride (98-107) mmol/L Carbon Dioxide (21-32) mmol/L Anion Gap (3-11) BUN (6-23) mg/dl Creatinine (0.6-1.4) mg/dl Est Cr Clr Drug Dosing ml/min Est GFR ( Amer) ml/min Est GFR (Non-Af Amer) ml/min BUN/Creatinine Ratio (10-20) Glucose (70-99(Fasting)) mg/dl Calcium (8.5-10.1) mg/dl Total Bilirubin (0.2-1.0) mg/dl AST (13-39) U/L ALT (7-52) U/L Alkaline Phosphatase (34-104) U/L Troponin I (0-0.04) ng/ml Total Protein (6.0-8.3) gm/dl Albumin (3.4-5.0) gm/dl Globulin (2.5-4.0) gm/dl Albumin/Globulin Ratio (0.9-2) Urine Color Urine Appearance (Clear) Urine pH (4.5-7.5) Ur Specific [place] (1.000-1.030) Urine Protein (Negative) Urine Glucose (UA) (Negative) Urine Ketones (Negative) Urine Blood (Negative) Urine Nitrite (Negative) Urine Bilirubin (Negative) Urine Urobilinogen (Negative) Ur Leukocyte Esterase (Negative) Urine WBC (Auto) (0-5) /hpf Urine RBC (Auto) (0-4) /hpf U Hyaline Cast (Auto) (0-5) /lpf U Epithel Cells (Auto) (0-5) /lpf (Auto) (Negative) PG Care Time/CCT Total # of Minutes Spent Total Time Spent with Patient: Total time spent is greater than 50% in coordination of care (as documented) at patient's floor/unit and/or counseling patient: Coding Level of Care Code 23493 Subseq Hosp Care Lvl 3 Diagnoses COVID-19 U07.1 Acute respiratory failure with hypoxia J96.01 Wheezing R06.2 Elevated troponin I level R77.8 Hypokalemia E87.6 HTN (hypertension) I10 Morbid obesity E66.01 BPH loc w urin obs/LUTS N40.1 GERD (gastroesophageal reflux disease) K21.9 Esophagitis presence: esophagitis presence not specified (1) GERD (gastroesophageal reflux disease) Esophagitis presence: esophagitis presence not specified Qualified Code(s): K21.9 - Gastro-esophageal reflux disease without esophagitis
[2021-06-17 17:20] LABS: Appearance Urine Clear (Clear); Bacteria Urine Automated Negative (Negative); Bilirubin Urine Negative (Negative); Blood Urine Negative (Negative); Color Urine Yellow; Glucose Urine UA Negative (Negative); Ketones Urine Negative (Negative); Leukocyte Esterase Urine Negative (Negative); Nitrite Urine Negative (Negative); Protein Urine Trace (Negative); RBC Urine Automated 0-4 /hpf (0-4); Urobilinogen Urine Negative (Negative)
[2021-06-17] MEDS: REMDESIVIR 100 MG in SODIUM CHLORIDE 0.9% 230 ML IV SCH (20:44)
[2021-06-18 06:47] LABS: Hematocrit (blood only) 46.6 % (42-52); Hemoglobin 15.7 g/dL (14.0-18.0); Mean Corpuscular Hemoglobin 30.7 pg (25-34); Mean Corpuscular Hgb Conc 33.7 g/dL (32-36); Mean Corpuscular Volume 91.2 fL (80-100); Mean Platelet Volume 10.8 fL (7.4-10.4); Platelet Count 127 K/uL (130-400); RDW Coefficient of Variation 13.8 % (11.5-14.5); RDW Standard Deviation 46.6 fL (36.4-46.3); Red Blood Count 5.11 M/uL (4.7-6.1); White Blood Count 7.11 K/uL (4.8-10.8)
[2021-06-18 07:10] LABS: Basophils # (auto) 0.01 K/uL (0-0.2); Basophils % (auto) 0.1 %; Immature Granulocytes # (auto) 0.04 K/uL (0.00-0.02); Immature Granulocytes % (auto) 0.6 %; Lymphocytes # (auto) 0.67 K/uL (1.2-3.4); Lymphocytes % (auto) 9.4 %; Monocytes # (auto) 0.72 K/uL (0.11-0.59); Monocytes % (auto) 10.1 %; Neutrophils # (auto) 5.67 K/uL (1.4-6.5); Neutrophils % (auto) 79.8 %
[2021-06-18 07:16] LABS: Albumin Level 3.2 gm/dl (3.4-5.0); BUN Creatinine Ratio 33.6 (10-20); Bilirubin,Total 0.6 mg/dl (0.2-1.0); C Reactive Protein 2.04 mg/dl (0-0.5); Calcium 7.5 mg/dl (8.5-10.1); Creatinine Clr Calc Pharmacy 67.3 ml/min; Est GFR (African American) 68.1 ml/min; Est GFR (Non-African American) 58.7 ml/min; Globulin 3.3 gm/dl (2.5-4.0); Potassium 3.4 mmol/L (3.5-5.1); Total Protein 6.5 gm/dl (6.0-8.3)
[2021-06-18] MEDS ORDERED: POTASSIUM CHLORIDE CRTAB 20 MEQ TABCR PO STA (08:33)
[2021-06-18] MEDS: TRIAMTERENE/HCTZ 37.5/25MG CAP PO SCH (09:57)
[2021-06-18] MEDS: FINASTERIDE 5 MG TAB PO SCH (09:57)
[2021-06-18] MEDS: PANTOprazole 40 MG TAB PO SCH ×2 (09:57→20:02)
[2021-06-18] MEDS: ASPIRIN 81 MG ECTAB PO SCH (09:57)
[2021-06-18] MEDS: ENOXAPARIN INJ 40 MG/0.4 ML SYR SQ SCH ×2 (09:58→20:01)
[2021-06-18] MEDS: dexAMETHasone 6 MG in SYRINGE 0 ML IV SCH (09:58)
[2021-06-18] MEDS: dilTIAZem HCL 180 MG CAPCR PO SCH (09:58)
[2021-06-18] MEDS: POTASSIUM CHLORIDE 10 MEQ TABCR PO SCH (09:58)
--- NOTE | 2021-06-18 14:33 | Discharge Summary ---
Date of Service June 18, 2021 Admission HPI Per Admitting Provider Jared Arriaga is an 80 year old male who presents to the ER on the advice of his PCP today due to shortness of breath and hypoxia. He reports being unwell for the last 4 days with shortness of breath, fever, chills, nasal congestion, cough, reduced appetite and wheezing. He denies any history of COPD or asthma and does not smoke. He denies any diarrhea, chest pain, abdominal pain, sore throat, sinus pain, loss of taste or smell. At his PCP office earlier today he was noted to be hypoxic with O2 sats 84% on room air therefore was sent to the ER. He is currently 97% on 2LPM O2 via nasal cannula. SARS-COV-2 subsequently positive. He was referred to medicine for admission and ongoing management of hypoxia and COVID-19. Principal Diagnosis COVID-19 Pneumonia, Acute respiratory failure with hypoxia Discharge Exam Constitutional WD/WN, vitals as above + obese Eyes + anicteric sclerae; no conjunctival abnormality Neck trachea midline, no thyromegaly Respiratory normal respiratory effort; no cough Auscultation: + wheezes (Bilateral expiratory, faint); no crackles and no rhonchi Cardiovascular RRR, no murmur, no edema Chest (Breasts) Chest: normal inspection of chest Gastrointestinal (Abdomen) normal bowel sounds, soft, nontender, no hepatosplenomegaly Musculoskeletal Extremities: extremities normal to inspection; no cyanosis and no clubbing Skin no rashes, warm and dry Neurologic moves all extremities and awake; no focal motor deficits Psychiatric A+Ox3, euthymic affect Lymphatic no lymphedema Discharge Data Allergies Allergy/AdvReac Type Severity Reaction Status Date / Time No Known Allergies Allergy Unknown ` Verified 06/16/21 16:13 Consultations 06/16/21 16:31 ED Decision to Admit Stat Hospital Course (1) COVID-19: With COVID-19 pneumonia First day of symptoms: June 13 First tested positive: 06/16 Requiring 2 L nasal cannula-continue and wean off as able to CRP minimally elevated at 3.4 Continue dexamethasone 6 mg IV daily Continue Remdesivir x5-day course Continue incentive spirometry, and flutter valve Prone as able (2) Acute respiratory failure with hypoxia: Procalcitonin negative Secondary to COVID-19 pneumonia Aim O2 sats > 90% (3) Wheezing: Consider PFTs as outpatient once over this Continue duonebs QID (4) Elevated troponin I level: Suspected demand-ischemia. No chest pain to suggest ACS. Troponin mildly elevated at 0.06 on admission, repeat trended down to normal ECG without ischemic changes (5) Hypokalemia: Persists Replace with oral potassium chloride Okay to continue triamterene/HCTZ Follow BMP (6) HTN (hypertension): Blood pressures acceptable -Continue his usual antihypertensives with diltiazem, triamterene and HCTZ (7) Morbid obesity: Increased risk of severity with this BMI 40.8 Needs weight loss (8) BPH loc w urin obs/LUTS: Continue finasteride (9) GERD (gastroesophageal reflux disease): Continue PPI VTE Prophylaxis - Lovenox 40mg SQ BID (increased dose due to COVID-19 and morbid obesity). Could consider full dosing per current NIH guidelines however d-dimer only mildly elevated. Disposition - COVID isolation, admit to med/surg Discharge Plan Discharge Items Patient Disposition: Home - Home Health Services Reason For Visit: ACUTE RESP. FAILURE WITH HYPOXIA, COVID-19 Discharge Diagnosis: COVID-19 Pneumonia, Acute respiratory failure with hypoxia Condition on Discharge: Fair Activity: As commented below Lifting: Gradually increase as tolerated Bathing: No limitations Exercise/Sports: Gradually increase as tolerated Non-emergency contact: Primary Care Provider Call non-emergency contact if: you have any medication questions and your symptoms worsen Follow-up/Referrals: Alfredito Green, [Primary Care Provider] - (Follow up within 1 week.) Diet: Heart Healthy Addtl Attending Provider Instructions: Please finish out the course of dexamethasone which is a steroid to help improve the inflammation in your lungs and low oxygen levels. You can use the albuterol inhaler as needed for wheezing and cough. If you feel worsening shortness of breath, chest pains, leg swelling or pain, or have any other acute concerns, please return to the hospital right away. You should remain on quarantine for 4 more days for your COVID. Continue to use the incentive spirometer 10 times each hour, and sleep on your stomach or your side to improve your oxygen levels. You will need to wear oxygen at home until your doctor tells you it is safe to discontinue it. Follow up with your PCP within 1 week. Pending Studies at Discharge: Yes (Final Blood cultures-no growth to date) Stand-Alone Forms: My [facility], Smoking Cessation Medications and DC Order Prescriptions: New dexamethasone 6 mg tablet 6 mg PO DAILY Qty: 7 RF: 0 albuterol sulfate 90 mcg/actuation HFA aerosol inhaler 2 inh inhalation Q4H PRN (Reason: shortness of breath or wheezing) Qty: 8.5 RF: 0 Continued triamterene-hydrochlorothiazid 37.5-25 mg capsule 1 cap PO DAILY Qty: 90 RF: 3 finasteride 5 mg tablet 5 mg PO DAILY Qty: 90 RF: 3 diltiazem HCl 360 mg capsule,extended release 24 hr 360 mg PO DAILY Qty: 90 RF: 3 potassium chloride 10 mEq tablet extended release 10 meq PO DAILY Qty: 30 RF: 11 aspirin 81 mg tablet,delayed release (DR/EC) 81 mg PO DAILY RF: 0 omeprazole 20 mg capsule,delayed release(DR/EC) 20 mg PO BID RF: 0 Discharge Orders: Discharge Order (Routine); Ordered 06/18/21 Ordered By: Cathleen Dao Admission Data Admit Date/Time: 06/16/21 17:18 Attending Provider: Cathleen Dao Admit Provider: Fernando Mayorga Primary Care Provider: Alfredito Green Other Providers: Fernando Mayorga Coding Diagnoses COVID-19 U07.1 Acute respiratory failure with hypoxia J96.01 Wheezing R06.2 Elevated troponin I level R77.8 Hypokalemia E87.6 HTN (hypertension) I10 Morbid obesity E66.01 BPH loc w urin obs/LUTS N40.1 GERD (gastroesophageal reflux disease) K21.9 Esophagitis presence: esophagitis presence not specified
--- NOTE | 2021-06-18 15:57 | Hospitalist Progress Note ---
Date of Service June 18, 2021 Assessment & Plan (1) COVID-19: Plan: With COVID-19 pneumonia First day of symptoms: June 13 First tested positive: 06/16 Requiring 2 L nasal cannula-continue and wean off as able to-there are times when he is on room air at rest as per nursing CRP minimally elevated at 3.4 and now down to 2.0 Continue dexamethasone 6 mg IV daily and convert to p.o. for discharge to finish out 10-day course Continue Remdesivir x5-day course Continue incentive spirometry, and flutter valve Prone as able -He is anxious for discharge to home-he did not have a ride for today -We will do two-step walk test in the morning and plan to discharge to home tomorrow with oxygen if needed (2) Acute respiratory failure with hypoxia: Plan: Procalcitonin negative Secondary to COVID-19 pneumonia Aim O2 sats > 90% (3) Wheezing: Plan: Consider PFTs as outpatient once over this Continue duonebs QID (4) Elevated troponin I level: Plan: Suspected demand-ischemia. No chest pain to suggest ACS. Troponin mildly elevated at 0.06 on admission, repeat trended down to normal ECG without ischemic changes (5) Hypokalemia: Plan: Persists, mild Replace with oral potassium chloride again today Okay to continue triamterene/HCTZ Continue home potassium chloride 10 mill equivalents once daily Follow BMP (6) HTN (hypertension): Plan: Blood pressures acceptable -Continue his usual antihypertensives with diltiazem, triamterene and HCTZ (7) Morbid obesity: Plan: Increased risk of severity with this BMI 40.8 Needs weight loss (8) BPH loc w urin obs/LUTS: Plan: Continue finasteride (9) GERD (gastroesophageal reflux disease): Plan: Continue PPI Plan: VTE Prophylaxis - Lovenox 40mg SQ BID (increased dose due to COVID-19 and morbid obesity) Disposition - COVID isolation, continued stay but discharged home tomorrow Admission and Anticipated Discharge Date Admission Date: June 16, 2021 Subjective Patient reports feeling a little bit better, anxious to get home to help take care of his as his son can no longer take care of her starting tomorrow. He is a little bit short of breath, and on 2 L nasal cannula when I saw him. He reports his pulse ox stays at 95% most of the day and he is able to ambulate to the bathroom and back without significant dyspnea. Denies chest pain. Telemetry with normal sinus rhythm with rates in the 60s to 70s Review of Systems Review of Systems: All systems reviewed & are unremarkable except as noted in HPI & below Physical Exam Constitutional: WD/WN, vitals as above + obese Eyes: + anicteric sclerae; no conjunctival abnormality Neck: trachea midline, no thyromegaly Respiratory: normal respiratory effort; no cough Auscultation: + wheezes (Bilateral expiratory, faint); no crackles and no rhonchi Cardiovascular: RRR, no murmur, no edema Chest (Breasts): Chest: normal inspection of chest Gastrointestinal (Abdomen): normal bowel sounds, soft, nontender, no hepatosplenomegaly Musculoskeletal: Extremities: extremities normal to inspection; no cyanosis and no clubbing Skin: no rashes, warm and dry Neurologic: moves all extremities and awake; no focal motor deficits Psychiatric: A+Ox3, euthymic affect Lymphatic: no lymphedema Results & Data Results & Data ([facility]) Vital Signs (Past 12 Hours) Vital Signs Temp Pulse Pulse Resp BP Pulse Ox 06/18/21 11:40 36.8 C 73 18 129/91 96 06/18/21 08:27 50 L 06/18/21 08:19 36.5 C 73 23 138/84 95 Laboratory Results 06/18/21 06/18/21 Range/Units 05:55 05:55 WBC 7.11 (4.8-10.8) K/uL RBC 5.11 (4.7-6.1) M/uL Hgb 15.7 (14.0-18.0) g/dL Hct 46.6 (42-52) % MCV 91.2 (80-100) fL MCH 30.7 (25-34) pg MCHC 33.7 (32-36) g/dL RDW Std Deviation 46.6 H (36.4-46.3) fL RDW Coeff of Donnie 13.8 (11.5-14.5) % Plt Count 127 L (130-400) K/uL MPV 10.8 H (7.4-10.4) fL Immature Gran % (Auto) 0.6 % Neut % (Auto) 79.8 % Lymph % (Auto) 9.4 % [place] % (Auto) 10.1 % Eos % (Auto) 0.0 % Baso % (Auto) 0.1 % Neut # (Auto) 5.67 (1.4-6.5) K/uL Lymph # (Auto) 0.67 L (1.2-3.4) K/uL [place] # (Auto) 0.72 H (0.11-0.59) K/uL Eos # (Auto) 0.00 (0-0.5) K/uL Baso # (Auto) 0.01 (0-0.2) K/uL Immature Gran # (Auto) 0.04 H (0.00-0.02) K/uL Sodium 139 (136-145) mmol/L Potassium 3.4 L (3.5-5.1) mmol/L Chloride 108 H (98-107) mmol/L Carbon Dioxide 28 (21-32) mmol/L Anion Gap 3 (3-11) BUN 39 H (6-23) mg/dl Creatinine 1.16 (0.6-1.4) mg/dl Est Cr Clr Drug Dosing 67.3 ml/min Est GFR ( Amer) 68.1 ml/min Est GFR (Non-Af Amer) 58.7 ml/min BUN/Creatinine Ratio 33.6 H (10-20) Glucose 120 H (70-99(Fasting)) mg/dl Calcium 7.5 L (8.5-10.1) mg/dl Total Bilirubin 0.6 (0.2-1.0) mg/dl AST 66 H (13-39) U/L ALT 45 (7-52) U/L Alkaline Phosphatase 54 (34-104) U/L C-Reactive Protein 2.04 H (0-0.5) mg/dl Total Protein 6.5 (6.0-8.3) gm/dl Albumin 3.2 L (3.4-5.0) gm/dl Globulin 3.3 (2.5-4.0) gm/dl Albumin/Globulin Ratio 1.0 (0.9-2) PG Care Time/CCT Total # of Minutes Spent Total Time Spent with Patient: Total time spent is greater than 50% in coordination of care (as documented) at patient's floor/unit and/or counseling patient: Coding Level of Care Code 35356 Subseq Hosp Care Lvl 2 Diagnoses COVID-19 U07.1 Acute respiratory failure with hypoxia J96.01 Wheezing R06.2 Elevated troponin I level R77.8 Hypokalemia E87.6 HTN (hypertension) I10 Morbid obesity E66.01 BPH loc w urin obs/LUTS N40.1 GERD (gastroesophageal reflux disease) K21.9 Esophagitis presence: esophagitis presence not specified (1) GERD (gastroesophageal reflux disease) Esophagitis presence: esophagitis presence not specified Qualified Code(s): K21.9 - Gastro-esophageal reflux disease without esophagitis
[2021-06-18] MEDS: REMDESIVIR 100 MG in SODIUM CHLORIDE 0.9% 230 ML IV SCH (20:01)
[2021-06-19 07:56] LABS: Albumin Globulin Ratio 1.1 (0.9-2); Albumin Level 3.3 gm/dl (3.4-5.0); Bilirubin,Total 0.8 mg/dl (0.2-1.0); Calcium 7.6 mg/dl (8.5-10.1); Creatinine Clr Calc Pharmacy 78.1 ml/min; Est GFR (African American) 81.4 ml/min; Est GFR (Non-African American) 70.3 ml/min; Globulin 3.1 gm/dl (2.5-4.0); Potassium 3.7 mmol/L (3.5-5.1); Total Protein 6.4 gm/dl (6.0-8.3)
[2021-06-19] MEDS: dilTIAZem HCL 180 MG CAPCR PO SCH (08:25)
[2021-06-19] MEDS: TRIAMTERENE/HCTZ 37.5/25MG CAP PO SCH (08:25)
[2021-06-19] MEDS: PANTOprazole 40 MG TAB PO SCH (08:25)
[2021-06-19] MEDS: ASPIRIN 81 MG ECTAB PO SCH (08:26)
[2021-06-19] MEDS: dexAMETHasone 6 MG in SYRINGE 0 ML IV SCH (08:26)
[2021-06-19] MEDS: FINASTERIDE 5 MG TAB PO SCH (08:26)
[2021-06-19] MEDS: POTASSIUM CHLORIDE 10 MEQ TABCR PO SCH (08:27)
[2021-06-19] MEDS: ENOXAPARIN INJ 40 MG/0.4 ML SYR SQ SCH (08:27)
--- NOTE | 2021-06-19 10:33 | Discharge Summary ---
Date of Service June 19, 2021 Admission HPI Per Admitting Provider Chief Complaint: Shortness of breath Primary Care Provider: Alfredito Green DO Jared Arriaga is an 80 year old male who presents to the ER on the advice of his PCP today due to shortness of breath and hypoxia. He reports being unwell for the last 4 days with shortness of breath, fever, chills, nasal congestion, cough, reduced appetite and wheezing. He denies any history of COPD or asthma and does not smoke. He denies any diarrhea, chest pain, abdominal pain, sore throat, sinus pain, loss of taste or smell. At his PCP office earlier today he was noted to be hypoxic with O2 sats 84% on room air therefore was sent to the ER. He is currently 97% on 2LPM O2 via nasal cannula. SARS-COV-2 subsequently positive. He was referred to medicine for admission and ongoing management of hypoxia and COVID-19. Principal Diagnosis COVID-19 Pneumonia, Acute respiratory failure with hypoxia Discharge Exam Constitutional WD/WN, vitals as above Eyes + anicteric sclerae ENMT external ear and nose normal, oropharynx normal Neck trachea midline, no thyromegaly Respiratory normal respiratory effort, lungs clear to auscultation Cardiovascular RRR, no murmur, no edema Chest (Breasts) Chest: normal inspection of chest Gastrointestinal (Abdomen) normal bowel sounds, soft, nontender, no hepatosplenomegaly Musculoskeletal Extremities: extremities normal to inspection; no cyanosis and no clubbing Skin no rashes, warm and dry Neurologic moves all extremities and awake; no focal motor deficits Psychiatric A+Ox3, euthymic affect Lymphatic no lymphedema Discharge Data Allergies Allergy/AdvReac Type Severity Reaction Status Date / Time No Known Allergies Allergy Unknown ` Verified 06/16/21 16:13 Consultations 06/16/21 16:31 ED Decision to Admit Stat Hospital Course (1) COVID-19: With COVID-19 pneumonia First day of symptoms: June 13 First tested positive: 06/16 Was requiring 2 L nasal cannula-now weaned off and passed a two step walk test, no O2 needed at home CRP minimally elevated at 3.4 and then down to 2.0 Received dexamethasone 6 mg IV daily and convert to p.o. for discharge to finish out 10-day course Received 4 days of Remdesivir Continue incentive spirometry, and flutter valve at home Prone as able stable for dc to home recommended to return if has worsening SOB, CP, leg swelling or any other acute concerns (2) Acute respiratory failure with hypoxia: Procalcitonin negative Secondary to COVID-19 pneumonia now resolved (3) Wheezing: Consider PFTs as outpatient once over this now resolved gave Rx for albuterol HFA prn (4) Elevated troponin I level: Suspected demand-ischemia. No chest pain to suggest ACS. Troponin mildly elevated at 0.06 on admission, repeat trended down to normal ECG without ischemic changes (5) Hypokalemia: resolved with replacement Okay to continue triamterene/HCTZ Continue home potassium chloride 10 mill equivalents once daily (6) HTN (hypertension): Blood pressures acceptable -Continue his usual antihypertensives with diltiazem, triamterene and HCTZ (7) Morbid obesity: Increased risk of severity with this BMI 40.8 Needs weight loss (8) BPH loc w urin obs/LUTS: Continue finasteride (9) GERD (gastroesophageal reflux disease): Continue PPI VTE Prophylaxis - Lovenox 40mg SQ BID (increased dose due to COVID-19 and morbid obesity) Disposition - dc to home with home health today I certify that this patient is under my care and that I, or a physicians construction assistant working with me, had a face to-face encounter that meets the home health [id number]-di-[id number] encounter requirements with this patient. The encounter with the patient was in whole, or in part, for the following medical condition, which is the primary reason for home health care (list medical condition): Covid. I certify that, based on my findings, the following services are medically necessary home health services: My clinical findings support the need for the above services because: Skilled Nsg Assessment Further, I certify that my clinical findings support that this patient is homebound (i.e. absences from home require considerable and taxing effort and are for medical reasons or synagogue services or infrequently or of short duration when for other reasons) because: Certification for Home Health Services: Based on the above findings, I certify that this patient is confined to the home and needs intermittent [facility] care, physical therapy and/or speech therapy or continues to need occupational therapy. The patient is under my care, and I have initiated the establishment of the plan of care. This patient will be followed by a physician who will periodically review the plan of care. Total Time Total Time Spent Total Time Spent (In Minutes): 40 min Discharge Plan Discharge Items Patient Disposition: Home - Home Health Services Reason For Visit: ACUTE RESP. FAILURE WITH HYPOXIA, COVID-19 Discharge Diagnosis: COVID-19 Pneumonia, Acute respiratory failure with hypoxia Condition on Discharge: Fair Activity: As commented below Lifting: Gradually increase as tolerated Bathing: No limitations Exercise/Sports: Gradually increase as tolerated Non-emergency contact: Primary Care Provider Call non-emergency contact if: you have any medication questions and your symptoms worsen Follow-up/Referrals: Alfredito Green DO [Primary Care Provider] - (Follow up within 1 week.) Diet: Heart Healthy Addtl Attending Provider Instructions: Please finish out the course of dexamethasone which is a steroid to help improve the inflammation in your lungs and low oxygen levels. You can use the albuterol inhaler as needed for wheezing and cough. If you feel worsening shortness of breath, chest pains, leg swelling or pain, or have any other acute concerns, please return to the hospital right away. You should remain on quarantine for 3 more days for your COVID. Continue to use the incentive spirometer 10 times each hour, and sleep on your stomach or your side to improve your oxygen levels. You will NOT need to wear oxygen at home as you had improvement in your oxygen levels. Follow up with your PCP within 1 week. Pending Studies at Discharge: Yes (Final Blood cultures-no growth to date) Stand-Alone Forms: [email or web address], Smoking Cessation Medications and DC Order Prescriptions: New dexamethasone 6 mg tablet 6 mg PO DAILY Qty: 7 RF: 0 albuterol sulfate 90 mcg/actuation HFA aerosol inhaler 2 inh inhalation Q4H PRN (Reason: shortness of breath or wheezing) Qty: 8.5 RF: 0 Continued triamterene-hydrochlorothiazid 37.5-25 mg capsule 1 cap PO DAILY Qty: 90 RF: 3 finasteride 5 mg tablet 5 mg PO DAILY Qty: 90 RF: 3 diltiazem HCl 360 mg capsule,extended release 24 hr 360 mg PO DAILY Qty: 90 RF: 3 potassium chloride 10 mEq tablet extended release 10 meq PO DAILY Qty: 30 RF: 11 aspirin 81 mg tablet,delayed release (DR/EC) 81 mg PO DAILY RF: 0 omeprazole 20 mg capsule,delayed release(DR/EC) 20 mg PO BID RF: 0 Discharge Orders: Discharge Order (Routine); Ordered 06/19/21 Ordered By: Cathleen Dao Admission Data Admit Date/Time: 06/16/21 17:18 Attending Provider: Cathleen Dao Admit Provider: Fernando Mayorga Primary Care Provider: Alfredito Green Other Providers: [facility] ; Fernando Mayorga Coding Level of Care Code D/C DAY MANAGEMENT >30 MINS Diagnoses COVID-19 U07.1 Acute respiratory failure with hypoxia J96.01 Wheezing R06.2 Elevated troponin I level R77.8 Hypokalemia E87.6 HTN (hypertension) I10 Morbid obesity E66.01 BPH loc w urin obs/LUTS N40.1 GERD (gastroesophageal reflux disease) K21.9 Esophagitis presence: esophagitis presence not specified
== END 2021-06-19 12:51 | disposition home health service (06) | DRG 177 ==
LOC: ED 15:03 → 2S 17:18 → SUATTDRO 17:18 → 2S 18:28